=== PATIENT | female | born 1965 | race Caucasian/White ===

== ENCOUNTER 2016-04-07 06:02 | Inpatient (IN) | payer OTHER ==
[~2016-04-07] VITALS: Ht 172.7 cm; Wt 93.0 kg
[2016-04-07] VITALS (13 sets, daily range): BP systolic 110–132; BP diastolic 52–87
[~2016-04-07 06:02] MED LIST: BIRTH CONTROL PILL PO; RANITIDINE HCL150 MG ORAL; SYNTHROID75 MCG ORAL; prozac PO
[2016-04-07] MEDS ORDERED: LORAZEPAM1 MG ORAL (06:39)
[2016-04-07] MEDS ORDERED: Thrombin 5000 units TOPIC ONE (06:58)
[2016-04-07] MEDS ORDERED: Vancomycin 1gm inj IVPB ONE (06:59)
[2016-04-07] MEDS ORDERED: Bupivacaine w/Epi 0.5% 30ml Vial INJ ONE (06:59)
[2016-04-07] MEDS ORDERED: Bacitracin 50000 Units Vial ONE (06:59)
[2016-04-07] MEDS ORDERED: ceFAZolin 2gm/50ml Premix 50 ML IVPB ONE (07:00)
[2016-04-07] MEDS ORDERED: Lidocaine 1% MPF 10mg/ml 5ml ONE (07:00)
[2016-04-07] MEDS ORDERED: Neostigmine 1mg/ml 10ml Inj ONE (07:00)
[2016-04-07] MEDS ORDERED: fentaNYL 100 mcg/2 mL IV ONE (07:00)
[2016-04-07] MEDS ORDERED: fentaNYL 250mcg/5ml ONE (07:00)
[2016-04-07] MEDS ORDERED: LR 1000ml ONE (07:00)
[2016-04-07] MEDS ORDERED: Propofol 10mg/ml 100ml btl IV ONE (07:00)
[2016-04-07] MEDS ORDERED: Glycopyrrolate 0.2mg/ml 1ml Vial ONE (07:00)
[2016-04-07] MEDS ORDERED: Sterile Water Irrig 1000ml IRRIG ONE (07:00)
[2016-04-07] MEDS ORDERED: Zemuron 50mg/5ml Inj IV ONE (07:00)
[2016-04-07] MEDS ORDERED: NS Irrig 1000ml ONE (07:00)
[2016-04-07] MEDS ORDERED: Dexamethasone 4mg/ml vial ONE (07:00)
[2016-04-07] MEDS ORDERED: LR 1000ml 1,000 ML IVLG SCH (07:03)
--- NOTE | 2016-04-07 07:03 | Anethesia Preoperative Eval ---
Anesthesia Pre-op PMH/ROS General Date of Evaluation: Apr 07, 2016 Time of Evaluation: 07:09 Anesthesiologist: Chyna ASA Score: ASA 2 Mallampati Score Class I : Soft palate, uvula, fauces, pillars visible Class II: Soft palate, uvula, fauces visible Class III: Soft palate, base of uvula visible Class IV: Only hard plate visible Mallampati Classification: Class II Surgeon: Marina Diagnosis: Back Pain Surgical Procedure: TLIF L3-4, Microdiscectomy L5-S1 Anesthesia History: none Family History: no anesthesia problems Allergies: Coded Allergies: No Known Allergies (Unverified , 06/17/15) Medications: see eMAR Past Medical History Cardiovascular: Reports: HTN Neurologic/Psychiatric: Reports: depression/anxiety Musculoskeletal/Integumentary: Reports: DDD - Back Pain Other: obesity - BMI 31 PSxH Narrative: Abdominoplasty, Breast Reduction, Ovarian Cyst SX, Lumbar Sx x5 Anesthesia Pre-op Phys. Exam Physician Exam Last Vital Signs Date Time Temp Pulse Resp B/P Pulse Ox O2 Delivery O2 Flow Rate FiO2 04/07/16 06:46 97.8 81 18 120/72 81 Room Air Constitutional: NAD Neurologic: CN 2-12 intact Cardiovascular: RRR Respiratory: CTA Gastrointestinal: S/NT/ND Airway Exam Mallampati Score: Class II MO: full ROM: full Teeth: intact Anesthesia Pre-op A/P Labs Urine Test Test 04/07/16 06:16 Urine HCG, Qualitative Negative Risk Assessment & Plan Assessment: ASA 2 Plan: GA, Glidescope, BIS Status Change Before Surgery: No Pre-Antibiotics Dru Grams Ancef IV Given Within 1 Hr of Incision: Yes Time Given: 07:26 Eleazar Clemente MD Apr 07, 2016 07:03
--- NOTE | 2016-04-07 07:06 | Immediate Post-Op Evaluation ---
Immediate Post-Op Evalulation Immediate Post-Op Evalulation Procedure: TLIF L3-4, Microdiscectomy L5-S1 Date of Evaluation: Apr 07, 2016 Time of Evaluation: 12:05 IV Fluids: 1500 LR Blood Products: 0 Estimated Blood Loss: 300 Urinary Output: 200 Blood Pressure Systolic: 132 Blood Pressure Diastolic: 82 Pulse Rate: 64 Respiratory Rate: 16 O2 Sat by Pulse Oximetry: 100 Temperature (Fahrenheit): 97.5 Pain Score (1-10): 3 Nausea: No Vomiting: No Complications 0 Patient Status: awake, reacts, patent, extubated, none Hydration Status: adequate Dru Grams Ancef IV Given Within 1 Hr of Incision: Yes Time Given: 07:26 Eleazar Clemente MD Apr 07, 2016 07:06
--- NOTE | 2016-04-07 07:09 | 48 Hour Post Anesthesia Eval ---
Post Anesthesia Evaluation Procedure: TLIF L3-4, Microdiscectomy L5-S1 Date of Evaluation: Apr 07, 2016 Time of Evaluation: 14:23 Blood Pressure Systolic: 134 0: 78 Pulse Rate: 67 Respiratory Rate: 18 Temperature (Fahrenheit): 98.4 O2 Sat by Pulse Oximetry: 98 Airway: patent Nausea: No Vomiting: No Pain Intensity: 3 Hydration Status: adequate Cardiopulmonary Status: Stable Mental Status/LOC: patient returned to baseline Follow-up Care/Observations: 0 Post-Anesthesia Complications: 0 Follow-up care needed: N/A Eleazar Clemente MD Apr 07, 2016 07:09
[2016-04-07] MEDS ORDERED: fentaNYL 100 mcg/2 mL IV PRN (07:15)
[2016-04-07] MEDS ORDERED: Ketorolac 30mg Inj IV PRN (07:15)
[2016-04-07] MEDS ORDERED: Norco 5mg/325mg tab ORAL PRN ×2 (07:15→15:00)
[2016-04-07] MEDS ORDERED: Meperidine 25mg/ml Inj IV PRN (07:15)
[2016-04-07] MEDS ORDERED: Oxycodone/Acetaminophen 5-325 ORAL PRN (07:15)
[2016-04-07] MEDS ORDERED: Ketorolac 60mg Inj IV PRN (07:15)
[2016-04-07] MEDS ORDERED: Norco 7.5mg/325mg tab ORAL PRN ×3 (07:15→15:00)
[2016-04-07] MEDS ORDERED: Midazolam 2mg/2ml Inj IVP PRN (07:15)
[2016-04-07] MEDS ORDERED: DiphenhydrAMINE 50mg/ml Inj IVP PRN (07:15)
[2016-04-07] MEDS ORDERED: LORazepam Inj 2mg/ml 1ml IV PRN (07:15)
[2016-04-07] MEDS ORDERED: Hydromorphone 0.5mg/0.5ml inj IVP PRN (07:15)
[2016-04-07] MEDS ORDERED: Metoclopramide 10mg/2ml Inj IVP PRN (07:15)
[2016-04-07] MEDS ORDERED: Atropine Inj 1mg/10ml Syr IV PRN (07:15)
[2016-04-07] MEDS ORDERED: Labetalol 5mg/ml 20ml vial IV PRN (07:15)
[2016-04-07] MEDS ORDERED: Heparin 5000 units/ml inj ONE (07:17)
--- NOTE | 2016-04-07 07:34 | Pre-Procedure Note/Attestation ---
Pre-Procedure Note/Attestation Complete Prior to Procedure Procedure Narrative: TLIF L34 with right sided discectomy at L5S1 Indications for Procedure Pre-Operative Diagnosis: lumbar radiculopathy and instability Attestation I attest that I discussed the nature of the procedure; its benefits; risks and complications; and alternatives (and the risks and benefits of such alternatives ), prior to the procedure, with the patient (or the patient's legal claims representative). I attest that, if there was a reasonable possibility of needing a blood transfusion, the patient (or the patient's legal claims representative) was given the [facility] standardized written summary, pursuant to the Chon Jeffrey Blood Safety Act ([place] Health and Safety Code # 1645, as amended). I attest that I re-evaluated the patient just prior to the surgery and that there has been no change in the patient's H&P, except as documented below: ZOE PAZ Apr 07, 2016 07:34
[2016-04-07] MEDS ORDERED: Acetaminophen (Non formulary) 1,000 MG/100 ML ML IV ONE (08:00)
[2016-04-07] MEDS: D5 1/2NS 1,000 ML IV SCH ×2 (13:54→23:53)
--- NOTE | 2016-04-07 14:52 | Diagnostic Imaging Report ---
Indication: PAIN, intraoperative Technique: Digital intraoperative images Comparison: None Findings: Intraoperative images document placement of posterior fusion hardware and a disc spacer at L3-4. Impression: Intraoperative imaging, as described
[2016-04-07] MEDS ORDERED: Naloxone 0.4mg/ml Inj IVP PRN (15:00)
[2016-04-07] MEDS ORDERED: HYDROmorphone 1mg/ml Carpuject SUBQ PRN (15:00)
[2016-04-07] MEDS ORDERED: HYDROmorphone 1mg/ml Carpuject IVP PRN (15:00)
[2016-04-07] MEDS: ceFAZolin sod 1 GM in D5W 55 ML IV SCH ×2 (16:19→23:53)
[2016-04-07] MEDS ORDERED: LORazepam 1mg tab ORAL PRN (17:30)
[2016-04-07] MEDS: Docusate 100mg cap ORAL SCH (17:44)
[2016-04-07 18:03] LABS: MEAN CORPUSCULAR HEMOGLOBIN 31.4 PG (27.0-31.0); MEAN CORPUSCULAR HGB CONC 31.6 G/DL (32.0-36.0); MEAN CORPUSCULAR VOLUME 99 FL (80-99); PLATELET COUNT 257 K/UL (150-450); RED BLOOD COUNT 3.76 M/UL (4.20-5.40); RED CELL DISTRIBUTION WIDTH 12.4 % (11.6-14.8); WHITE BLOOD COUNT 18.1 K/UL (4.8-10.8)
[2016-04-07 18:58] LABS: BAND NEUTROPHILS % (MANUAL) 5 % (0-8); LYMPHOCYTES % (MANUAL) 6 % (20-45); NEUTROPHILS % (MANUAL) 88 % (45-75); NUCLEATED RED BLOOD CELLS 1 /100 WBC; TOTAL CELLS COUNTED 100
[2016-04-07 18:59] LABS: BASOPHILS % (MANUAL) 0 % (0-2); EOSINOPHILS % (MANUAL) 0 % (0-3); MACROCYTES 1+; PLATELET ESTIMATE ADEQUATE
[2016-04-07 19:00] LABS: PLATELET MORPHOLOGY NORMAL
--- NOTE | 2016-04-07 23:57 | Operative Note - Dictated ---
DATE OF OPERATION: 04/07/2016 PREOPERATIVE DIAGNOSES: 1. L3-L4 grade 1 spondylolisthesis with instability in motion on flexion-extension x-rays with L5-S1 disc protrusion with stenosis and foraminal stenosis and lower extremity radiculopathy. 2. Prior fusion at L4-L5. POSTOPERATIVE DIAGNOSES: 1. L3-L4 grade 1 spondylolisthesis with instability in motion on flexion-extension x-rays with L5-S1 disc protrusion with stenosis and foraminal stenosis and lower extremity radiculopathy. 2. Prior fusion at L4-L5. PROCEDURES PERFORMED: 1. Posterior spinal instrumentation with pedicle screw instrumentation at L3-L4. 2. Posterior interbody fusion through a right-sided transforaminal approach at L3-L4. 3. Implantation of PEEK interbody device at L3-L4 4. Use of local autograft and allograft for a posterolateral arthrodesis at L3-L4 5. Posterior osteotomy at L3-L4. 6. Right sided L5-S1 medial facetectomy, laminotomy, foraminotomy, and microdiskectomy. 7. Intraoperative use of fluoroscopy. 8. Intraoperative use of microscope, EMG and SSEP. SURGEON: Rishabh Gray M.D. LIFELINE REPRESENTATIVES: Efe Bautista M.D. ANESTHESIA: General endotracheal anesthesia. ANESTHESIOLOGIST: Eleazar Clemente M.D. INTRAOPERATIVE FINDINGS: 1. Disc herniation, stenosis, and nerve root impingement at L3-L4. 2. Herniated nucleus pulposus at L5-S1 with stenosis and impingement of the traversing S1 nerve root with foraminal stenosis for the exiting right L5 nerve root. EBL: 400 mL. INDICATIONS: The patient is a pleasant female who presented with back pain and lower extremity radiculopathy with failed nonoperative treatments. Option for above treatment was given. Risks, alternatives, and benefits were discussed with the patient at length. The risks include, but are not limited to anesthesia complications including , medical complications including liver, kidney, and cardiopulmonary deficits, bleeding infection, dural tear, CSF leak, nerve root injury, pars fracture instability, cauda equina syndrome, reherniation, failure of hardware, pseudarthrosis, need for further surgery as well as well as other complications. The patient understood and wished to proceed. DESCRIPTION OF OPERATION: The patient was brought into the operating room supine on the stretcher. Subsequently appropriate IV lines were placed and 2 g of Ancef was administered. A surgical time-out was called. Anesthesia was induced. The patient was successfully intubated. Sequential compression devices were placed on to the bilateral lower extremities. A Zaragoza was placed under sterile conditions. The patient was gently turned over on the Lele frame table. All bony prominences were well padded and the abdomen was assured to lay freely. The L3-L4 and L5-S1 interspaces were positively identified preoperatively via fluoroscopy. The back was prepped and draped in usual sterile fashion with alcohol, chlorhexidine scrub, ChloraPrep, and Ioban draping. Indelible marker was used to rosalind the midline for surgery. The back was prepped and draped in usual sterile fashion with alcohol, chlorhexidine scrub, ChloraPrep, and Ioban draping. Myself and my planning assistant were prepped and gowned appropriately. At this point, the intraoperatively sterilely draped microscope was brought into the field. A midline incision was carried out initially with monopolar cautery. Attention was diverted to doing a subperiosteal dissection at L3-L4. A subperiosteal dissection at L3-L4 was accomplished including the laminas and the transverse processes at L3-L4. The L2-L3 facet joint was well preserved. Retractors were set into place and a radiopaque marker was placed at the level of the L3 pedicle and the L3-L4 interspace was positively identified. Attention was diverted to doing a dissection at the right L5-S1 level with monopolar cautery. The laminas at L5 and S1 on the right side were subperiosteally dissected as well as the medial aspect of the facet joints. A radiopaque marker was placed at the S1 pedicle and the L5-S1 level was positively identified. Now attention was diverted back to L3-L4. A right-sided intralumbar laminotomy at L3-L4 was accomplished via a straight and curved curettes, high-speed drill and #2 through #5 Kerrison punches. Ligamentum flavum was found and was removed. At this point, a posterior osteotomy of the inferior and superior facets at L3-4 was accomplished and a complete decompression of the foramina and the exiting nerve root at the exiting L3 nerve root was accomplished a complete decompression of the central canal in the lateral recess on the right side was done first. Skeletonization of the pedicles at L3 and L4 was accomplished and at this point attention was diverted to doing the posterior interbody fusion. The neural elements were carefully medially retracted with a nerve root retractor and a box incision was carried out with a #11 blade. Hemostasis was achieved with Gelfoam, thrombin, and FloSeal. At this point with Sonya's pituitary rongeur Aditi as well as #2 Kerrison punch. A radical diskectomy was accomplished. Also, allen from the [employer] system as well as a ringed curettes were used to remove endplate cartilage. The endplate bone was well preserved. At this point, trials were used in the interbody space and a 9 mm in height by 9 millimeter x 25 millimeter cage was chosen as this trial fit the best. Small bone morphogenic protein was used in this case in the interbody space. Half of that was placed anteriorly and the anterior interbody space and half was placed into the PEEK interbody device along with graft on. The PEEK interbody device was successfully implanted into the L3-L4 interbody space. After distraction was brought within interspinous distractor. Lateral and AP fluoroscopy revealed the PEEK interbody device to be in excellent position at L3-L4 with recreation of disk height and lordosis at L3-L4. Now, attention was diverted to placement of pedicle screws. The mammillary processes at bilateral L3 and bilateral L4 were found and with a high speed drill, the center of the pedicle was found. A pedicle Finder probe was used to probe the center of the pedicle into the respective vertebral bodies and a ball-tip probe was used successively at each pedicle bilaterally at L3 and L4. There was no cortical breaches and a tap at 5.5 millimeters was used at each pedicle. Once it was assured that there were no cortical breaches with a ball-tip probe, the following pedicles screws were placed bilaterally at L3 and bilaterally at L4. Each pedicle screw measured 6.5 x 45 millimeters and this was from the [employer]. Each screw had excellent purchase and there were no cortical breaches. De Beque probe was used and there was no medial breach. At this point, the stimulus evoked EMG was used at the left L3. There was no response at 20 milliamps at left L4. There was a response at 19 milliamps at the right L3. There was no response at 20 milliamps at right L4. There was a response at 13 milliamps. The medial aspect and the inferior aspect of the pedicle at the right L4 was probed and there were no cortical breaches and the screws were found to be deemed to be safe and they look excellent on the AP and lateral fluoroscopy. Once this was accomplished, decortication of the transverse processes was used and Alem putty and local allograft was used for posterolateral fusion. A 40 mm lordotic amandeep was used and screws were used, torqued appropriately, tapped on the tulips of the pedicle screws at L3 and L4 bilaterally. Once this was accomplished, Tisseel was used at the level of the posterior annulus to prevent any migration of bone morphogenic protein into the canal. Once this was accomplished, now attention was diverted to the right L5-S1. studio set up worker retractors were placed at right L5-S1 and with a high speed drill, straight curved curette, #2 through #5 Kerrison punches and interlumbar laminotomy medial facetectomy and foraminotomy was accomplished at L5-S1 with complete decompression of the exiting right L5 nerve root. A nerve root retractor was used to gently retract the neural elements. A Coats #4 was used to expose the disk space. There was a disc protrusion at L5-S1 with impingement of the traversing L5 nerve root and with a #11 blade, a horizontal split incision was carried out and with pituitary rongeurs, Sonya curette dental probe, a diskectomy was done until the floor of the canal was flat and there was no further impingement on the nerve roots. Once this was accomplished, copious triple antibiotic irrigation was used. Hemostasis was achieved with Gelfoam, thrombin, for field and attention was diverted to closure. Final AP and lateral fluoroscopy revealed all instrumentation to be in excellent position and #1 Vicryl sutures were used to close the dorsal lumbar fascia in a watertight interrupted fashion. Before this was done, a subfascial Hemovac drain was placed. Hemostasis again was achieved. More triple antibiotic solution was used and the subdermal and subcuticular layers were closed with 2-0 Vicryl sutures. Surgicel was used to close the skin and a sterile dressing tape was placed. The patient was turned supine, extubated, in stable condition was taken recovery room in stable condition and found to be neurovascularly intact. The patient was admitted to the hospital for monitoring. Rishabh Gray M.D. DR: MAHOGANY JOB#: [id number] CC:
[2016-04-08] VITALS: BP 137/68
[2016-04-08 04:00] VITALS: BP 119/63
[2016-04-08 08:00] VITALS: BP 141/75
[2016-04-08] MEDS: ceFAZolin sod 1 GM in D5W 55 ML IV SCH (08:12)
[2016-04-08] MEDS: Docusate 100mg cap ORAL SCH ×2 (08:12→17:34)
[2016-04-08 08:52] LABS: BASOPHILS % (AUTO) 0.5 % (0.0-2.0); EOSINOPHILS % (AUTO) 0.1 % (0.0-3.0); MEAN CORPUSCULAR HEMOGLOBIN 31.9 PG (27.0-31.0); MEAN CORPUSCULAR HGB CONC 32.9 G/DL (32.0-36.0); MEAN CORPUSCULAR VOLUME 97 FL (80-99); MEAN PLATELET VOLUME 7.4 FL (6.5-10.1); MONOCYTES % (AUTO) 6.5 % (1.0-10.0); PLATELET COUNT 260 K/UL (150-450); RED BLOOD COUNT 3.43 M/UL (4.20-5.40); RED CELL DISTRIBUTION WIDTH 12.3 % (11.6-14.8); WHITE BLOOD COUNT 15.2 K/UL (4.8-10.8)
[2016-04-08] MEDS: D5 1/2NS 1,000 ML IV SCH (10:12)
[2016-04-08 12:10] VITALS: BP 144/96
[2016-04-08 16:00] VITALS: BP 133/86
[2016-04-09 00:41] VITALS: BP 116/63
[2016-04-09 04:00] VITALS: BP 112/60
[2016-04-09 07:18] LABS: BASOPHILS % (AUTO) 0.7 % (0.0-2.0); EOSINOPHILS % (AUTO) 1.5 % (0.0-3.0); LYMPHOCYTES % (AUTO) 35.7 % (20.0-45.0); MEAN CORPUSCULAR HEMOGLOBIN 32.3 PG (27.0-31.0); MEAN CORPUSCULAR HGB CONC 32.8 G/DL (32.0-36.0); MEAN CORPUSCULAR VOLUME 98 FL (80-99); MEAN PLATELET VOLUME 7.5 FL (6.5-10.1); MONOCYTES % (AUTO) 4.9 % (1.0-10.0); NEUTROPHILS % (AUTO) 57.2 % (45.0-75.0); PLATELET COUNT 275 K/UL (150-450); RED BLOOD COUNT 3.55 M/UL (4.20-5.40); RED CELL DISTRIBUTION WIDTH 12.3 % (11.6-14.8); WHITE BLOOD COUNT 15.7 K/UL (4.8-10.8)
[2016-04-09 07:53] VITALS: BP 136/73
[2016-04-09] MEDS: Docusate 100mg cap ORAL SCH (09:32)
[2016-04-09] MEDS ORDERED: D5 1/2NS 1000ml IV ONE (09:41)
[2016-04-09 11:54] VITALS: BP 119/80
--- NOTE | 2016-04-09 12:44 | General Progress Note ---
Progress Note Progress Note doing well. no lbp. min leg spasms infrequent avss a and o times 3 inc cdi hv out 07/07 in the le calves soft and nt doing well dc todaty fu 7 days ZOE PAZ Apr 09, 2016 12:44
--- NOTE | 2016-04-10 09:01 | Discharge Summary ---
Discharge Summary Hospital Course Date of Admission Apr 07, 2016 at 06:02 Date of Discharge Apr 09, 2016 at 13:30 Admitting Diagnosis lumbar radiculopathy Reason for Hospitalization: elective surgery JADE Corona is a 50 year old female who was admitted on Apr 07, 2016 at 06:02 for Lumbar Radiculopathy for elective surgery Procedures s/p 04/07/[address] Gray 1. Posterior spinal instrumentation with pedicle screw instrumentation at L3-L4. 2. Posterior interbody fusion through a right-sided transforaminal approach at L3-L4. 3. Implantation of PEEK interbody device at L3-L4 4. Use of local autograft and allograft for a posterolateral arthrodesis at L3-L4 5. Posterior osteotomy at L3-L4. 6. Right sided L5-S1 medial facetectomy, laminotomy, foraminotomy, and microdiskectomy. Hospital Course s/p elective surgery 2/3 course of recovery unremarkable surgeon closely followed Hemovac out incision clean, dry, intact pain management provided ambulated freely neurovascular intact muscle strength 5/5 BLE calf soft and nontender tolerated diet voided freely surgeon cleared for discharge follow up with surgeon in 7-10 days patient has pain medications at home DISCHARGE DIAGNOSIS 1. L3-L4 grade 1 spondylolisthesis with instability in motion on flexion-extension x-rays with L5-S1 disc protrusion with stenosis and foraminal stenosis and lower extremity radiculopathy. 2. History of prior fusion at L4-L5. 3. Disc herniation, stenosis, and nerve root impingement at L3-L4. 4. Herniated nucleus pulposus at L5-S1 with stenosis and impingement of the traversing S1 nerve root with foraminal stenosis for the exiting right L5 nerve root. 5. s/p Posterior interbody fusion through a right-sided transforaminal approach at L3-L4 with implantation of PEEK interbody device at L3-L4, use of local autograft and allograft for a posterolateral arthrodesis at L3-L4; posterior osteotomy at L3-L4, right sided L5-S1 medial facetectomy, laminotomy, foraminotomy, and microdiskectomy. Discharge Medications Continued Medications: Levothyroxine Sodium* (Synthroid*) 75 Mcg Tablet 75 MCG ORAL DAILY, TAB Take in the morning on an empty stomach, at least 30 minutes before food. [prozac] () 20 MG PO DAILY Discharge Condition Upon Discharge: stable Discharge Disposition Patient was discharged to Home (01) Discharge Diagnoses: Discharge Instructions Discharge Instructions Special Instructions I have been assigned to complete a D/C Summary on this account. I was not involved in the patient management Jeanette Saravia NP (Vanchtein) Apr 10, 2016 09:01
--- NOTE | 2016-06-09 14:12 | Brief Operative Note ---
Immediate Post Operative Note Operative Note Pre-op Diagnosis: lumbar radiculopathy and instability Procedure: L34 tlif and right l5s1 decompression surgery Post-op Diagnosis: elfego Post-op Diagnosis: same as pre-op Findings: consistent w/pre-op dx studies Surgeon: leigh Ladle Watcher: vicente Anesthesiologist: jemima Anesthesia: general Specimen: none Complications: none Condition: stable Fluids: 1000cc Estimated Blood Loss: volume - 400cc Drains: none Implant(s) used?: Yes ZOE PAZ Jun 09, 2016 14:12
== END 2016-04-09 13:30 | disposition home or self-care (01) | DRG 460 ==
LOC: SDSOVERFLO 06:02 → 3E 13:12
PROC: 0SG00A1 (ICD-10-PCS; principal; 2016-04-07 07:30)
PROC: 01NB0ZZ Release Lumbar Nerve, Open Approach (ICD-10-PCS; principal; 2016-04-07 07:30)
PROC: 0SB20ZZ Excision of Lumbar Vertebral Disc, Open Approach (ICD-10-PCS; principal; 2016-04-07 07:30)
DX: M51.16 Intervertebral disc disorders with radiculopathy, lumbar region (principal); I10 Essential (primary) hypertension; M53.2X6 Spinal instabilities, lumbar region; M48.06 Spinal stenosis, lumbar region; M43.16 Spondylolisthesis, lumbar region; E03.9 Hypothyroidism, unspecified; F32.9 Major depressive disorder, single episode, unspecified
CPT/HCPCS: 36415; 72020; 76001; 81025; 85007; 85025; 86850; 86900; 86901; 87081; 94003; 94150; J2180; J2405; J2710